=== PATIENT | male | born 1985 | race Caucasian/White ===

== ENCOUNTER → 2016-08-13 | Day surgery (SDC) | payer OTHER | LOC: RAD 13:29 | PROVIDERS: ATTEND Specialist | PROC: BP08ZZZ Plain Radiography of Right Shoulder (ICD-10-PCS; principal; 2016-08-13) | DX: S43.91XD Sprain of unspecified parts of right shoulder girdle, subsequent encounter (principal); X58.XXXD Exposure to other specified factors, subsequent encounter; M25.511 Pain in right shoulder | CPT/HCPCS: 73222; 73040; 77002; A9576 ==